=== PATIENT | female | born 1985 | race American Indian/Alaskan Native ===

== ENCOUNTER 2016-08-27 06:55 | Day surgery (SDC) | payer BC ==
--- NOTE | 2016-08-26 17:31 | History and Physical Report ---
History of Present Illness Date of examination: 08/26/16 History of present illness: Patient has been reassessed/reevaluated. H&P has been reviewed. No interval changes. 30 YOBF p0000 with missed EGA 7 weeks diagnosed by serial travaginal ultrasounds. 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 of genital herpes: no Partner hx. of genital herpes: no Hx of STD: None Current Allergies (reviewed today): No known allergies Past Medical History: Negative Past Medical History Past Surgical History: Negative Past Surgical History Family History Summary: Other family member - Has No Family History of Biliary Tract Cancer - Entered On : 08/14/2015 Other family member - Has No Family History of Breast Cancer - Entered On: 2015 Other family member - Has No Family History of Brain Cancer - Entered On: 2015 Other family member - Has No Family History of Colon Cancer - Entered On: 2015 Other family member - Has No Family History of DVT/PE on OCP - Entered On: 2015 Other family member - Has No Family History of Kidney/Urinary Tract Cancer - Entered On: 08/14/2015 Other family member - Has No Family History of Ovarvian Cancer - Entered On: Other family member - Has No Family History of Pancreatic Cancer - Entered On: Other family member - Has No Family History of Stomach Cancer - Entered On: 08/13 Other family member - Has No Family History of Small Bowel Cancer - Entered On: 08/14/2015 Other family member - Has No Family History of Uterine Cancer - Entered On: 08/13 General Comments - FH: No Family History of Breast Cancer No Family History of Colon Cancer No Family History of Ovarvian Cancer No Family History of DVT/PE on OCP Social History: Patient is single Smoking History: Patient has never smoked. Risk Factors: Smoked Tobacco Use: Never smoker Smokeless Tobacco Use: Never Passive smoke exposure: no Drug use: no HIV high-risk behavior: no Alcohol use: no Exercise: no Seatbelt use: 100 % Review of Systems General Denies fever, chills, sweats, anorexia, fatigue, weakness, malaise, weight loss and sleep disorder. Denies vaginal discharge, incontinence, dysuria, hematuria, urinary frequency, amenorrhea, menorrhagia, abnormal vaginal bleeding, pelvic pain, genital sores, decreased libido, painful periods, painful sex, urinary urgency, hot flashes, vaginal dryness, vaginal itching and vaginal odor. CV Denies chest pains, palpitations, syncope, dyspnea on exertion, orthopnea, PND and peripheral edema. Resp Denies cough, dyspnea at rest, excessive sputum, hemoptysis, wheezing and pleurisy. GI Denies nausea, vomiting, diarrhea, constipation, change in bowel habits, abdominal pain, melena, hematochezia, jaundice, gas/bloating, indigestion/ heartburn, dysphagia and odynophagia. Breast Denies left breast lump, right breast lump, nipple discharge, bloody discharge from nipple, breast pain, abnormal mammogram and breast enlargement. Psych Denies depression, anxiety, irritability and mood swings. Past History Past Medical History: other (See HPI) Past Surgical History: Other (See HPI) Social history: other (See HPI) Family history: other (See HPI) Medications and Allergies Allergies Allergy/AdvReac Type Severity Reaction Status Date / Time No Known Allergies Allergy Unverified 08/26/16 11:24 Home Medications Medication Instructions Recorded Confirmed Last Taken Type No Known Home Medications [No 08/26/16 08/26/16 Unknown History Reported Home Medications] Active Meds: Active Medications Lactated Ringer's (Lactated Ringers) 1,000 mls @ 150 mls/hr IV DIRECT DANY Review of Systems Constitutional: other (See HPI) Exam - Physical Exam Narrative exam: HEENT: normocephalic, no lesions or deformities Neck/Thyroid: supple, thyroid normal Skin no significant abnormal lesions or rashes Chest: respiratory effort normal, clear to auscultation Breasts: normal without skin changes or masses CV: regular, normal S1-S2, no murmur, no rub, no gallop Abdomen: normal bowel sounds, soft, nontender, no HSM Musculoskeletal: grossly normal ROM in joints, no joint tenderness or muscle weakness Neuro: no gross anomalities Extremities: no clubbing, cyanosis, or edema 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 No evidence of cystocele or rectocele. Cervix: normal appearance, no lesions, no discharge Uterus: normal position, midline, mobile Adnexae: no masses or tenderness Rectovaginal: exam defered Results - Labs CBC & Chem 7: 08/27/16 07:45 Assessment and Plan - Patient Problems (1) Missed Current Visit: Yes Status: Acute Plan to address problem: Diagnosis explained to patient . Questions answered. Medical and surgical treatment options discussed. Discussed risk of surgery including infection, bleeding and risk of perforating her uterus. Questions answered. Patient understands and desires to proceed
--- NOTE | 2016-08-27 07:40 | Anesthesia Day of Surgery ---
Anesthesia Day of Surgery - Day of Surgery Patient Examined: Yes Patient H&P Reviewed: Yes Patient is NPO: Yes
--- NOTE | 2016-08-27 07:40 | Anesthesia Consultation ---
Anesthesia Consult and Med Hx Date of service: 08/27/16 - Airway Anesthetic Teeth Evaluation: Good ROM Head & Neck: Adequate Mental/Hyoid Distance: Adequate Mallampati Class: Class I - Pulmonary Exam CTA: Yes - Cardiac Exam Cardiac Exam: RRR - Pre-Operative Health Status ASA Pre-Surgery Classification: ASA1 Proposed Anesthetic Plan: General - Central Nervous System Hx Psychiatric Problems: No - Other Systems Hx Alcohol Use: Yes (occas) Hx Cancer: No
[2016-08-27] MEDS: LACTATED RINGERS 1,000 ML IV SCH ×2 (07:56→10:01)
[2016-08-27] MEDS ORDERED: ZOFRAN IV PRN (08:00)
[2016-08-27] MEDS ORDERED: NORCO 5/325 PO PRN (08:00)
[2016-08-27] MEDS ORDERED: VERSED IV NR (08:00)
[2016-08-27] MEDS ORDERED: PEPCID PO NR (08:00)
[2016-08-27] MEDS ORDERED: DECADRON ONE (08:08)
[2016-08-27] MEDS ORDERED: ZOFRAN ONE (08:08)
[2016-08-27] MEDS ORDERED: DIPRIVAN 10 MG/ML IV ONE ×2 (08:08→08:55)
[2016-08-27] MEDS ORDERED: XYLOCAINE MPF 2% ONE (08:08)
[2016-08-27] MEDS ORDERED: SUBLIMAZE ONE (08:08)
[2016-08-27 08:22] LABS: Hematocrit 36.3 % (30.3-42.9); Hemoglobin 11.8 gm/dl (10.1-14.3)
[2016-08-27] MEDS ORDERED: METHERGINE IM ONE ×2 (09:03→09:09)
[2016-08-27] MEDS ORDERED: NACL 0.9% IR ONE (09:09)
[2016-08-27] MEDS ORDERED: ePHEDrine SULFATE ONE (09:10)
[2016-08-27] MEDS ORDERED: SILVER NITRATE TP ONE (09:15)
--- NOTE | 2016-08-27 09:24 | Operative Report ---
Operative Report Operative Report: Date of procedure: 08/27/2016 Pre-operative diagnosis: Missed Post-operative diagnosis: Same Procedure name(s): Suction dilatation and curettage Surgeon: Bhargav Lindquist MD Buffet Manager: [] Anesthesia: General EBL: 100 mL Complications: None Findings: A moderate amount of tissue consistent with products of conception Specimen(s): Uterine contents Procedure: The patient was brought operating room where general anesthesia was induced without difficulty. Patient was placed in dorsal lithotomy position prepped and draped in the usual sterile manner. Rubber catheter was used to empty her bladder. Speculum placed in the vagina. Tenaculum was placed at 12: 00. The cervix was dilated progressively with Hegar dilators. A 8 mm suction catheter was placed through the cervical os. Several passes of the suction catheter removed the uterine contents. General curettage was done with a banjo curettte. On until a gritty sensation was felt throughout the uterine cavity. Further suction with the suction curettage revealed no further products. All instruments were removed patient was hemostatic. She was awakened in the operating room and accompanied to recovery room in good condition.
--- NOTE | 2016-08-27 09:29 | Short Stay Summary ---
Short Stay Documentation Date of service: 08/27/16 - History H&P: dictated Past Medical History: other (See HPI) Past Surgical History: Other (See HPI) Social history: other (See HPI) - Allergies and Medications Current Medications: Allergies No Known Allergies Allergy (Unverified 08/26/16 11:24) Home Medications Medication Instructions Recorded Confirmed Last Taken Type Acetaminophen/Codeine [Tylenol #3] 1 tab PO Q4HR PRN #20 tablet 08/27/16 Unknown Rx Doxycycline [Vibramycin CAP] 100 mg PO Q12HR #14 capsule 08/27/16 Unknown Rx Ibuprofen [Motrin 800 MG tab] 800 mg PO Q6H PRN #30 tablet 08/27/16 Unknown Rx Methylergonovine [Methergine] 0.2 mg PO Q8HR #6 tablet 08/27/16 Unknown Rx Active Medications Acetaminophen/Hydrocodone Bitart ([place] 5/325) 2 each PO ONCE PRN PRN Reason: Pain, Moderate (4-6) Stop: 08/27/16 14:00 Famotidine (Pepcid) 20 mg PO PREOP NR Stop: 08/27/16 13:00 Last Admin: 08/27/16 08:12 Dose: 20 mg Hydromorphone HCl (Dilaudid) 0.5 mg IV Q10MIN PRN PRN Reason: Pain , Severe (7-10) Stop: 08/27/16 14:00 Lactated Ringer's (Lactated Ringers) 1,000 mls @ 150 mls/hr IV DIRECT DANY Last Admin: 08/27/16 07:56 Dose: 150 mls/hr Midazolam HCl (Versed) 2 mg IV PREOP NR Stop: 08/27/16 23:59 Last Admin: 08/27/16 08:15 Dose: 2 mg Ondansetron HCl (Zofran) 4 mg IV ONCE PRN PRN Reason: Nausea And Vomiting Stop: 08/27/16 14:00 - Brief post op/procedure progress note Date of procedure: 08/27/16 (please see dictated operative note) - Hospital course Hospital course: Patient was admitted underwent the above him procedure without any complications. Patient will be discharged with follow-up in office in 1-2 weeks for postop check. - Disposition Condition at discharge: Good Disposition: DISCHARGED TO HOME OR SELFCARE - Discharge Diagnoses (1) Missed Status: Acute Short Stay Discharge Plan Activity: advance as tolerated Diet: regular Additional Instructions: Patient office for fever chills nausea vomiting or pain uncontrolled by pain relief. Follow up with: PRIMARY CARE, [Primary Care Provider] - 7 Days Prescriptions: Methylergonovine [Methergine] 0.2 mg PO Q8HR #6 tablet Ibuprofen [Motrin 800 MG tab] 800 mg PO Q6H PRN #30 tablet PRN Reason: Pain Acetaminophen/Codeine [Tylenol #3] 1 tab PO Q4HR PRN #20 tablet PRN Reason: Pain Doxycycline [Vibramycin CAP] 100 mg PO Q12HR #14 capsule
[2016-08-27] MEDS: DILAUDID IV PRN ×2 (09:45→09:55)
--- NOTE | 2016-08-27 10:08 | Post Anesthesia Evaluation ---
- Post Anesthesia Evaluation Patient Participated: Yes Airway Patent: Yes Stable Respiratory Function: Yes Temp > 96.8F: Yes Pain Manageable: Yes Adequeate Hydration: Yes Anesthesia Complications: No Block Receding Appropriately: Not Applicable
[2016-08-27 10:39] VITALS: BP 111/68
== END 2016-08-27 11:22 | disposition home or self-care (01) ==
LOC: OR 06:55
PROVIDERS: ATTEND Obstetrics & Gynecology
DX: O02.1 Missed abortion (principal); Z72.89 Other problems related to lifestyle
CPT/HCPCS: 36415; 59820; 85014; 85018; 86900; 86901; 88305; J1100; J1170; J2210; J2250; J2405; J2704; J3010; J7120

== ENCOUNTER 2018-04-17 11:15 | Outpatient (CLI) | payer OTHER ==
--- NOTE | 2018-04-17 14:23 | Ultrasound Report ---
LEFT BREAST ULTRASOUND: 04/17/18 11:15:00 CLINICAL: Pain in the lower left breast. COMPARISON: None. FINDINGS: Ultrasoundof the lower left breast was performed from 9 o'clock to 3 o'clock and demonstrated a single subareolar benign cyst measuring 3 mm and otherwise normal fibroglandular structures. No solid mass or shadowing. IMPRESSION: A single 3 mm benign cyst of the left breast and otherwise negative exam. BI-RADS 2 - - Benign RECOMMENDATION: Clinical followup and routine mammographic screening based on ACS guidelines.
== END 2018-04-17 11:16 | disposition home or self-care (01) ==
LOC: US 11:15
PROVIDERS: ATTEND Obstetrics & Gynecology
DX: N60.02 Solitary cyst of left breast (principal)

== ENCOUNTER 2018-10-19 08:24 | Day surgery (SDC) | payer OTHER ==
--- NOTE | 2018-10-18 14:33 | History and Physical Report ---
History of Present Illness Date of examination: 10/18/18 History of present illness: Patient has been reassessed/reevaluated. H&P has been reviewed. No interval changes. The patient presents today Pre- Op. Medical and surgical treatment options discussed Discussed risks and benefits of expectant management, treatments with medications and dilatation and curretage. Patient desires definitive treatment Patient desires D&C. Vital Signs: Patient Profile: 33 Years Old Female Height: 64.25 inches (163.19 cm) Weight: 162 pounds (73.64 kg) BMI: 27.59 BSA: 1.80 Past History : 4 Term Births: 0 Premature Births: 0 Living Children: 0 Para: 0 Mult. Births: 0 Prev : 0 Prev. attempt? 0 Aborta: 3 Elect. Ab: 1 Spont. 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 of genital herpes: no Partner hx. of genital herpes: no Hx of STD: none Active Medications (reviewed today): None Current Allergies (reviewed today): No known allergies Past Medical History: Negative Past Medical History Past Surgical History: D&C: (08/27/2016) SAB D&C: (12/2016) EAB Family History Summary: Reviewed history Last on 12/16/2016 and no changes required:10/18/2018 Other family member - Has No Family History of Biliary Tract Cancer - Entered On: 08/14/2015 Other family member - Has No Family History of Breast Cancer - Entered On: 08/14/2015 Other family member - Has No Family History of Brain Cancer - Entered On: 08/14/2015 Other family member - Has No Family History of Colon Cancer - Entered On: 08/14/2015 Other family member - Has No Family History of DVT/PE on OCP - Entered On: 08/14/2015 Other family member - Has No Family History of Kidney/Urinary Tract Cancer - Entered On: 08/14/2015 Other family member - Has No Family History of Ovarvian Cancer - Entered On: 08/14/2015 Other family member - Has No Family History of Pancreatic Cancer - Entered On: 08/14/2015 Other family member - Has No Family History of Stomach Cancer - Entered On: 08/14/2015 Other family member - Has No Family History of Small Bowel Cancer - Entered On: 08/14/2015 Other family member - Has No Family History of Uterine Cancer - Entered On: 08/14/2015 MGM - Has Family History of Lung Cancer - Entered On: 03/21/2018 General Comments - FH: No Family History of Breast Cancer No Family History of Colon Cancer No Family History of Ovarvian Cancer No Family History of DVT/PE on OCP Social History: Reviewed history from 08/14/2015 and no changes required: Patient is single Smoking History: Patient has never smoked. Risk Factors: Smoked Tobacco Use: Never smoker Smokeless Tobacco Use: Never Passive smoke exposure: no Drug use: no HIV high-risk behavior: no Alcohol use: no Exercise: no Seatbelt use: 100 % Review of Systems General Denies fever, chills, sweats, anorexia, fatigue, weakness, malaise, weight loss and sleep disorder. Complains of abnormal vaginal bleeding. Denies vaginal discharge, incontinence, dysuria, hematuria, urinary frequency, amenorrhea, menorrhagia, pelvic pain, genital sores, decreased libido, painful periods, painful sex, urinary urgency, hot flashes, vaginal dryness, vaginal itching and vaginal odor. CV Denies chest pains, palpitations, syncope, dyspnea on exertion, orthopnea, PND and peripheral edema. Resp Denies cough, dyspnea at rest, excessive sputum, hemoptysis, wheezing and pleurisy. GI Denies nausea, vomiting, diarrhea, constipation, change in bowel habits, abdominal pain, melena, hematochezia, jaundice, gas/bloating, indigestion/heartburn, dysphagia and odynophagia. Breast Denies left breast lump, right breast lump, nipple discharge, bloody discharge from nipple, breast pain, abnormal mammogram and breast enlargement. Psych Denies depression, anxiety, irritability and mood swings. Past History Past Medical History: other (See HPI) Past Surgical History: Other (See HPI) Social history: full code, other (See HPI) Family history: other (See HPI) Medications and Allergies Allergies Allergy/AdvReac Type Severity Reaction Status Date / Time No Known Allergies Allergy Unverified 10/18/18 11:32 Home Medications Medication Instructions Recorded Confirmed Last Taken Type No Known Home Medications [No 04/06/18 10/18/18 Unknown History Reported Home Medications] Review of Systems Constitutional: other (See HPI) Exam - Physical Exam Narrative exam: HEENT: normocephalic, no lesions or deformities Skin no significant abnormal lesions or rashes Chest: respiratory effort normal, clear to auscultation CV: regular, normal S1-S2, no murmur, no rub, no gallop Abdomen: normal bowel sounds, soft, nontender, no HSM Musculoskeletal: grossly normal ROM in joints, no joint tenderness or muscle weakness Neuro: no gross anomalities Extremities: no clubbing, cyanosis, or edema 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 Questions answered. Patient understands and desires to proceed The patient was instructed/informed the following: The normal length of hospital stay for this procedure. Nothing to eat or drink after midnight the evening prior to surgery. Pre-op instruction sheets given. (2) Missed Current Visit: No Status: Acute Plan to address problem: Will obtain chromosomal studies of POC (3) Blood type AB+ Current Visit: No Status: Chronic
--- NOTE | 2018-10-19 09:20 | Ultrasound Report ---
Pelvic ultrasound. 10/19/2018. HISTORY: Miscarriage. Bleeding. FINDINGS: The uterus measures 8.1 x 3.7 x 4.5 cm. The endometrial stripe is mildly thickened measurin g 13.5 mm and heterogeneous. Mild increased vascularity is noted distally. Right ovary measures 2.1 x 1.1 x 2.2 cm. Left ovary measures 2.5 x 1.6 x 2.1 cm. Both ovaries contain flow. Negative for adnexal mass or fluid. IMPRESSION: Thickened, heterogeneous endometrial stripe with mild increased vascularity. The findings are worrisome for retained products. Signer Name: Chai Lorenzo MD Signed: 10/19/2018 9:16 AM Workstation Name: [id number]
--- NOTE | 2018-10-19 09:54 | Anesthesia Consultation ---
Anesthesia Consult and Med Hx Date of service: 10/19/18 - Airway Anesthetic Teeth Evaluation: Good ROM Head & Neck: Adequate Mental/Hyoid Distance: Adequate Mallampati Class: Class I Intubation Access Assessment: Good - Pulmonary Exam CTA: Yes - Cardiac Exam Cardiac Exam: RRR - Pre-Operative Health Status ASA Pre-Surgery Classification: ASA1 Proposed Anesthetic Plan: General - Central Nervous System Hx Psychiatric Problems: No - Other Systems Hx Alcohol Use: Yes (Occas) Hx Cancer: No
--- NOTE | 2018-10-19 09:55 | Anesthesia Day of Surgery ---
Anesthesia Day of Surgery - Day of Surgery Patient Examined: Yes Patient H&P Reviewed: Yes Patient is NPO: Yes
[2018-10-19] MEDS ORDERED: DILAUDID IV PRN (10:00)
[2018-10-19] MEDS ORDERED: ZOFRAN IV PRN (10:00)
[2018-10-19] MEDS ORDERED: LACTATED RINGERS 1,000 ML IV SCH (10:00)
[2018-10-19] MEDS ORDERED: SILVER NITRATE TP ONE (10:12)
[2018-10-19] MEDS ORDERED: METHERGINE IM ONE ×2 (10:13→11:20)
[2018-10-19] MEDS ORDERED: SUBLIMAZE ONE (10:16)
[2018-10-19] MEDS ORDERED: DIPRIVAN 10 MG/ML IV ONE (10:17)
[2018-10-19] MEDS ORDERED: VERSED ONE (10:52)
[2018-10-19] MEDS ORDERED: XYLOCAINE MPF 2% ONE (11:00)
[2018-10-19] MEDS ORDERED: DECADRON ONE (11:08)
[2018-10-19] MEDS ORDERED: ZOFRAN ONE (11:08)
[2018-10-19] MEDS ORDERED: PHENYLEPHRINE/NS Syringe 1,000 MCG/10 ML IV ONE (11:08)
[2018-10-19] MEDS ORDERED: TORADOL ONE (11:08)
[2018-10-19] MEDS ORDERED: NACL 0.9% IR ONE (11:20)
--- NOTE | 2018-10-19 12:05 | Short Stay Summary ---
Short Stay Documentation Date of service: 10/19/18 - History H&P: dictated Past Medical History: other (See HPI) Past Surgical History: Other (See HPI) Social history: full code, other (See HPI) - Allergies and Medications Current Medications: Allergies No Known Allergies Allergy (Unverified 10/18/18 11:32) Home Medications Medication Instructions Recorded Confirmed Last Taken Type Acetaminophen/Codeine [Tylenol #3] 1 tab PO Q4HR PRN #10 tablet 10/19/18 Unknown Rx DOXYCYCLINE Hyclate [Vibramycin 100 mg PO Q12HR #14 capsule 10/19/18 Unknown Rx CAP] Ibuprofen [Motrin 800 MG tab] 800 mg PO Q6H PRN #30 tablet 10/19/18 Unknown Rx Active Medications Hydromorphone HCl (Dilaudid) 0.5 mg IV Q10MIN PRN PRN Reason: Pain , Severe (7-10) Stop: 10/19/18 16:00 Lactated Ringer's (Lactated Ringers) 1,000 mls @ 75 mls/hr IV DIRECT DANY Last Admin: 10/19/18 10:51 Dose: 75 mls/hr Documented by: Ondansetron HCl (Zofran) 4 mg IV ONCE PRN PRN Reason: Nausea And Vomiting Stop: 10/19/18 16:00 - Brief post op/procedure progress note Date of procedure: 10/19/18 (See dictated ) Condition: stable - Hospital course Hospital course: Please see H&P for details. Patient was admitted underwent the above him procedure without any complications. Patient will be discharged with follow-up in office in 1-2 weeks for postop check. - Disposition Condition at discharge: Good Disposition: DC-01 TO HOME OR SELFCARE - Discharge Diagnoses (1) History of recurrent miscarriages Status: Chronic (2) Missed Status: Acute (3) Blood type AB+ Status: Chronic Short Stay Discharge Plan Activity: advance as tolerated Diet: regular Additional Instructions: Patient office for heavy vaginal bleeding, fever, chills, nausea, vomiting or pain uncontrolled by pain medication. Follow up with: MURPHY RICHMOND MD [Primary Care Provider] - 7 Days Prescriptions: Ibuprofen [Motrin 800 MG tab] 800 mg PO Q6H PRN #30 tablet PRN Reason: Pain Acetaminophen/Codeine [Tylenol #3] 1 tab PO Q4HR PRN #10 tablet PRN Reason: Pain DOXYCYCLINE Hyclate [Vibramycin CAP] 100 mg PO Q12HR #14 capsule
[2018-10-19 12:38] VITALS: BP 103/53
--- NOTE | 2018-10-19 12:41 | Post Anesthesia Evaluation ---
- Post Anesthesia Evaluation Patient Participated: Yes Airway Patent: Yes Stable Respiratory Function: Yes Nausea/Vomiting: No Temp > 96.8F: Yes Pain Manageable: Yes Adequeate Hydration: Yes Anesthesia Complications: No Block Receding Appropriately: Not Applicable Patient on Ventilator: No
--- NOTE | 2018-10-26 18:10 | Operative Report ---
Operative Report Operative Report: Date of procedure: 10/19/2018 Pre-operative diagnosis: Missed Post-operative diagnosis: Same Procedure name(s): Suction dilatation and curettage Surgeon: Bhargav Lindquist MD Patient Account Representative: [] Anesthesia: General EBL: 50 mL Complications: None Findings: A moderate amount of tissue consistent with products of conception Specimen(s): Uterine contents Procedure: The patient was brought operating room where general anesthesia was induced without difficulty. Patient was placed in dorsal lithotomy position prepped and draped in the usual sterile manner. Rubber catheter was used to empty her bladder. Speculum placed in the vagina. Tenaculum was placed at 12:00. The cervix was dilated progressively with Hegar dilators. A 10 mm suction catheter was placed through the cervical os. Several passes of the suction catheter removed the uterine contents. General curettage was done with a banjo curettte. On until a gritty sensation was felt throughout the uterine cavity. Further suction with the suction curettage revealed no further products. All instruments were removed patient was hemostatic. She was awakened in the operating room and accompanied to recovery room in good condition.
== END 2018-10-19 08:25 | disposition home or self-care (01) ==
LOC: OR 08:24
PROVIDERS: ATTEND Obstetrics & Gynecology
DX: O02.1 Missed abortion (principal); Z79.899 Other long term (current) drug therapy; Z72.89 Other problems related to lifestyle; Z98.890 Other specified postprocedural states
CPT/HCPCS: 59820; 76830; 82803; 88305; J1100; J1885; J2210; J2250; J2370; J2405; J2704; J3010; J7120

== ENCOUNTER 2021-01-30 11:04 | Outpatient (CLI) | payer OTHER ==
[2021-01-30 12:24] VITALS: BP 119/76
[2021-01-30 13:20] LABS: Alanine Aminotransferase 15 units/L (7-56); Albumin 3.7 g/dL (3.9-5); BUN/Creatinine Ratio 13; Blood Urea Nitrogen 10 mg/dL (7-17); Calcium 9.2 mg/dL (8.4-10.2); Hemolysis Index 5
[2021-01-30 13:21] LABS: Bilirubin,Direct < 0.2 mg/dL (0-0.2)
== END 2021-01-30 15:00 | disposition home or self-care (01) ==
LOC: TRG 11:04 → APU 11:06 → TRG 15:00
PROVIDERS: ATTEND Student in an Organized Health Care Education/Training Program
DX: O09.893 Supervision of other high risk pregnancies, third trimester (principal); Z3A.39 39 weeks gestation of pregnancy
CPT/HCPCS: 36415; 59025; 80048; 80076

== ENCOUNTER 2021-02-02 18:58 | Inpatient (IN) | payer OTHER ==
[2021-02-02] MEDS ORDERED: LACTATED RINGERS 1,000 ML ONE (21:45)
[2021-02-02] MEDS ORDERED: OXYTOCIN DRIP 30,000 MILLIUNITS/500 ML BAG IV ONE (22:06)
--- NOTE | 2021-02-02 22:29 | History and Physical Report ---
History of Present Illness Date of examination: 02/02/21 Date of admission: 02/02/21 19:45 Chief complaint: Labor - water broke in triage History of present illness: EDC Calculations by LMP: 02/02/2021 Past History : 6 Term Births: 1 Premature Births: 0 Living Children: 1 Para: 1 Mult. Births: 0 Prev : 0 Prev. attempt? 0 Aborta: 4 Elect. Ab: 1 Spont. Ab: 3 Ectopics: 0 # 1 Delivery date: 08/27/2016 Weeks Gestation: 8 Delivery type: SAB Delivery location: [facility] Comments: D&C done # 2 Delivery date: 01/01/2017 Delivery type: EAB # 3 Delivery date: 03/2018 Delivery type: SAB # 4 Delivery date: 10/19/2018 Weeks Gestation: 9 Delivery type: SAB Delivery location: [facility] Comments: D&C done # 5 Delivery date: 10/25/2019 Weeks Gestation: 39.1 Delivery type: Vaginal Anesthesia type: epidural Delivery location: [facility] Infant Sex: female weight: 8 Comments: none Past Medical History: Reviewed history from 05/12/2009 and no changes required: Negative Past Medical History Risk Factors: Smoked Tobacco Use: Never smoker Smokeless Tobacco Use: Never Drug use: no HIV high-risk behavior: no Alcohol use: no Exercise: no 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: other (see HPI) Family/Genetic History: other (see HPI) Social history: no significant social history - Obstetrical History Expected Date of Delivery: 02/02/21 Actual Gestation: 40 Week(s) 0 Day(s) : 6 Para: 1 Hx # Term Pregnancies: 1 Number of Pregnancies: 0 Spontaneous Abortions: 3 Induced : 1 Number of Living Children: 1 Medications and Allergies Allergies Allergy/AdvReac Type Severity Reaction Status Date / Time No Known Allergies Allergy Verified 10/24/19 11:38 Home Medications Medication Instructions Recorded Confirmed Last Taken Type Acetaminophen/Codeine [Tylenol #3] 1 tab PO Q4HR PRN #10 tablet 10/19/18 10/25/19 Unknown Rx DOXYCYCLINE Hyclate [Vibramycin 100 mg PO Q12HR #14 capsule 10/19/18 10/25/19 Unknown Rx CAP] Ibuprofen [Motrin 800 MG tab] 800 mg PO Q6H PRN #30 tablet 10/19/18 10/25/19 Unknown Rx Ibuprofen [Motrin] 800 mg PO Q8HR PRN #30 tablet 10/26/19 Unknown Rx Review of Systems All systems: negative - Vital Signs Vital signs: Vital Signs Temp Pulse Resp BP Pulse Ox 98.6 F 101 H 18 123/73 99 02/02/21 19:36 02/02/21 19:36 02/02/21 19:36 02/02/21 19:36 02/02/21 19:36 Temp Pulse Resp BP Pulse Ox 98.6 F 120 H 18 123/73 100 02/02/21 19:36 02/02/21 22:25 02/02/21 19:36 02/02/21 19:36 02/02/21 22:25 - Physical Exam Breasts: Positive: normal Cardiovascular: Regular rate Lungs: Positive: Normal air movement Abdomen: Positive: normal appearance, soft Genitourinary (Female): Positive: normal external genitalia, normal perenium Vulva: both: normal Vagina: Positive: normal moisture Uterus: Positive: normal size - Obstetrical FHR: auscultation normal Uterine Contraction Monitor Mode: External Cervical Dilatation: 10 Cervical Effacement Percentage: 100 station: +1 Uterine Contraction Frequency (min): 2 Uterine Contraction Duration: 60 Uterine Contraction Pattern: Regular Uterine Tone Measurement Phase: Contraction Uterine Contraction Intensity: Strong/Firm Results All other labs normal. Assessment and Plan 35y/o arrived to triage for labor check, she quickly progressed to 8cms after SROM of clear fluild. Admission orders in EMR. I arrived as patient was starting to push spontaneously with ctx. - Patient Problems (1) 40 weeks gestation of Current Visit: Yes Status: Acute (2) SROM (spontaneous rupture of membranes) Current Visit: Yes Status: Acute
[2021-02-02] MEDS ORDERED: BENZOCAINE/MENTHOL 20/0.5% TOP SPRAY 56 GM TP PRN (22:32)
[2021-02-02] MEDS ORDERED: LANOLIN/ZINC/DIMETHICONE (LANSINOH) 7 GM TP PRN ×2 (22:32)
[2021-02-02] MEDS ORDERED: WITCH HAZEL/ GLYCERIN PAD TP PRN (22:32)
[2021-02-02] MEDS ORDERED: ONDANSETRON 4 MG/2 ML INJ IV PRN (22:32)
[2021-02-02] MEDS ORDERED: KETOROLAC 30 MG/1 ML INJ IV PRN (22:32)
[2021-02-02] MEDS ORDERED: PROMETHAZINE 25 MG TAB PO PRN (22:32)
[2021-02-02] MEDS ORDERED: ACETAMINOPHEN 325 MG TAB PO PRN (22:32)
[2021-02-02] MEDS ORDERED: diphenhydrAMINE 25 MG CAP PO PRN (22:32)
[2021-02-02] MEDS ORDERED: MAGNESIUM HYDROXIDE (MOM) ORAL LIQD UDC PO PRN (22:32)
[2021-02-02] MEDS ORDERED: DOCUSATE SODIUM 100 MG CAP PO PRN (22:32)
--- NOTE | 2021-02-02 22:32 | Procedure Note ---
OB Delivery Note - Delivery Date of Delivery: 02/02/21 [employer]: SAADIA POMPA Estimated blood loss: <100cc - Vaginal Delivery presentation: vertex Delivery position: OA Intrapartum events: precipitous labor- <3hr Delivery induction: none Delivery monitor: external FHT, external uterine Route of delivery: Delivery placenta: spontaneous Delivery cord: nuchal cord, 3 umbilical vessels Episiotomy: none Delivery laceration: none Anesthesia: none Delivery comments: female born OA over intact perineum, tight nuchal cord somersaulted thro ugh. placed skin to skin on mother's abdomen. 3 vessel cord clamped and cut after cessation of pulsation. Placenta delivered intact and complete. no lacerations to repair. EBL <100. Wt 8#10oz. All counts correct, mother and LDR stable. - A at 1 minute: 8 at 5 minutes: 9 Infant Gender: Female (8#10)
[2021-02-02 22:53] LABS: Hematocrit 38.3 % (30.3-42.9); Hemoglobin 12.3 gm/dl (10.1-14.3); Mean Corpuscular HGB Conc 32 % (30-34); Mean Corpuscular Volume 85 fl (79-97); Platelet Count 157 K/mm3 (140-440); Red Cell Distribution Width 15.7 % (13.2-15.2)
[2021-02-02] MEDS ORDERED: OXYTOCIN DRIP 30 UNITS/500 ML BAG IV SCH (23:00)
[2021-02-03] MEDS ORDERED: LACTATED RINGERS 1,000 ML IV SCH (00:15)
[2021-02-03] MEDS: IBUPROFEN 800 MG TAB PO SCH ×3 (02:35→17:37)
--- NOTE | 2021-02-03 09:01 | Progress Note ---
Assessment and Plan Pt reports ambulating, voiding, and eating well and without difficulties. Post delivery H&H ordered for today. POC d/w pt. Questions encouraged and addressed. Pt verbalizes understanding and agrees to POC. Pt reports desires for BTL for control and consents signed in office. Anticipate discharge home tomorrow. - Patient Problems (1) (normal spontaneous vaginal delivery) Current Visit: No Status: Acute Subjective - Subjective Date of service: 02/03/21 Principal diagnosis: s/p Patient reports: appetite normal, voiding normally, pain well controlled, ambulating normally : doing well, nursing well Objective - Vital Signs Latest vital signs: Vital Signs Temp Pulse Resp BP BP Pulse Ox Pulse Ox 02/03/21 05:10 98.1 F 87 20 124/73 98 02/03/21 00:37 98 02/03/21 00:16 75 93 02/03/21 00:15 99 H 97 02/03/21 00:12 102 H 137/61 02/03/21 00:10 90 98 02/03/21 00:05 94 H 98 02/03/21 00:00 95 H 99 02/02/21 23:57 96 H 130/64 02/02/21 23:55 99 H 98 02/02/21 23:50 87 97 02/02/21 23:45 88 97 02/02/21 23:43 93 H 126/66 02/02/21 23:40 93 H 99 02/02/21 23:35 102 H 98 02/02/21 23:30 95 H 98 02/02/21 23:27 96 H 123/59 02/02/21 23:25 97 H 98 02/02/21 23:20 95 H 99 02/02/21 23:15 101 H 99 02/02/21 23:13 98 H 117/59 02/02/21 23:10 93 H 98 02/02/21 23:05 94 H 99 02/02/21 23:00 95 H 99 02/02/21 22:57 96 H 118/62 02/02/21 22:56 98.3 F 97 H 18 118/62 99 02/02/21 22:55 94 H 99 02/02/21 22:50 99 H 100 02/02/21 22:45 102 H 100 02/02/21 22:40 104 H 100 02/02/21 22:35 106 H 100 02/02/21 22:30 113 H 99 02/02/21 22:25 120 H 100 02/02/21 22:20 106 H 98 02/02/21 22:15 129 H 99 02/02/21 22:10 103 H 100 02/02/21 22:05 92 H 99 02/02/21 21:50 85 02/02/21 21:35 93 H 100 02/02/21 21:30 102 H 96 02/02/21 21:29 72 92 02/02/21 21:25 91 H 98 02/02/21 19:56 106 H 99 02/02/21 19:51 103 H 100 02/02/21 19:46 96 H 100 02/02/21 19:41 107 H 99 02/02/21 19:36 98.6 F 104 H 18 123/73 123/73 99 Intake and Output 02/02/21 02/03/21 02/03/21 23:59 07:59 15:59 Intake Total 240 Output Total 450 Balance -210 Intake: Oral 240 Output: Urine 450 Void 450 Other: Total, Intake Amount 240 Total, Output Amount 150 # Voids Void 1 Weight 213 lb Estimated Blood Loss 100 - Exam Breasts: Present: normal, Cardiovascular: Present: Regular rate Lungs: Present: Normal air movement Abdomen: Present: normal appearance, soft Uterus: Present: normal, firm, fundal height at umbilicus. Absent: bogginess Extremities: Present: normal - Labs Labs: Abnormal lab results 02/02/21 Range/Units 21:53 MCH 27 L (28-32) pg RDW 15.7 H (13.2-15.2) %
[2021-02-03] MEDS: PRENATAL VIT27-FE FUMARATE-FOLIC ACID VIT TAB PO SCH (09:46)
[2021-02-03 15:04] LABS: Hematocrit 38.3 % (30.3-42.9); Hemoglobin 12.2 gm/dl (10.1-14.3)
[2021-02-04] MEDS: IBUPROFEN 800 MG TAB PO SCH ×2 (00:24→05:45)
[2021-02-04] MEDS ORDERED: TETANUS,DIPH,PERTUSS(ACELL) VACCINE 0.5 ML SYRINGE IM ONE (06:00)
--- NOTE | 2021-02-04 09:09 | Discharge Summary ---
Providers - Providers Date of Admission: 02/02/21 19:45 Date of discharge: 02/04/21 (desires d/c home) Attending physician: BECKY STRONG MD Primary care physician: BECKY STRONG MD Hospitalization Reason for admission: Labor and delivery Condition: Good Pertinent studies: post delivery H&H 12.2/38.3 Procedures: Hospital course: uncomplicated and course Disposition: 01 HOME / SELF CARE / HOMELESS Final Discharge Diagnosis (Prints w/discharge instructions): Time spent for discharge: 20 - Discharge Diagnoses (1) (normal spontaneous vaginal delivery) Status: Acute Core Measure Documentation - Palliative Care Palliative Care/ Comfort Measures: Not Applicable - Core Measures Any of the following diagnoses?: none Exam - Constitutional Vitals: Temp Pulse Resp BP Pulse Ox 97.1 F L 75 20 110/61 100 02/04/21 07:56 02/04/21 07:56 02/04/21 07:56 02/04/21 07:56 02/04/21 07:56 General appearance: Present: no acute distress, well-nourished - EENT Eyes: Present: PERRL ENT: hearing intact, clear oral mucosa - Neck Neck: Present: supple, normal ROM - Respiratory Respiratory effort: normal Respiratory: bilateral: CTA - Cardiovascular Rhythm: regular Heart Sounds: Absent: rub, click - Extremities Extremities: pulses symmetrical, No edema Peripheral Pulses: within normal limits - Abdominal General gastrointestinal: Present: soft, non-tender, non-distended, normal bowel sounds Female genitourinary: Present: normal - Integumentary Integumentary: Present: clear, warm, dry - Musculoskeletal Musculoskeletal: gait normal, strength equal bilaterally - Psychiatric Psychiatric: appropriate mood/affect, intact judgment & insight - Neurologic Neurologic: CNII-XII intact, moves all extremities - Additional findings Additional findings: lochia scant, fundus firm, Plan Activity: no restrictions Diet: regular Follow up with: BECKY STRONG MD [Primary Care Provider] - 02/25/21 (Congratulations! Please call [phone] to schedule your visit in 4 week. Call for any questions or concerns. ) Prescriptions: Ibuprofen [Motrin 800 MG tab] 800 mg PO Q8HR PRN #30 tablet PRN Reason: Pain
[2021-02-04] MEDS: PRENATAL VIT27-FE FUMARATE-FOLIC ACID VIT TAB PO SCH (09:29)
[2021-02-04 14:17] VITALS: BP 116/68
== END 2021-02-04 13:20 | disposition home or self-care (01) | DRG 807 ==
LOC: TRG 18:58 → APU 18:59 → OBSVTOIN 19:45 → TRG 19:45 → LD 19:45 → OB 02-03 00:45
PROVIDERS: ADMIT Student in an Organized Health Care Education/Training Program; ATTEND Student in an Organized Health Care Education/Training Program
PROC: 10E0XZZ Delivery of Products of Conception, External Approach (ICD-10-PCS; principal; 2021-02-02)
DX: O62.3 Precipitate labor (principal); Z37.0 Single live birth; O69.1XX0 Labor and delivery complicated by cord around neck, with compression, not applicable or unspecified; Z3A.40 40 weeks gestation of pregnancy; Z20.822 Contact with and (suspected) exposure to COVID-19
CPT/HCPCS: 36415; 85014; 85018; 85027; 86592; 86850; 86900; 86901; G0378; J2590; J7120; U0003

== ENCOUNTER 2021-03-16 09:48 | Day surgery (SDC) | payer OTHER ==
[2021-03-11 13:50] LABS: Hematocrit 42.9 % (30.3-42.9); Hemoglobin 13.6 gm/dl (10.1-14.3); Mean Corpuscular HGB Conc 32 % (30-34); Mean Corpuscular Volume 83 fl (79-97); Platelet Count 144 K/mm3 (140-440); Red Blood Count 5.14 M/mm3 (3.65-5.03); Red Cell Distribution Width 15.3 % (13.2-15.2)
--- NOTE | 2021-03-16 08:19 | History and Physical Report ---
History of Present Illness Date of examination: 03/11/21 History of present illness: This 35 year old patient desires sterilization. Discussed with various methods of contraceptives including abstinence, barrier and hormonal. Discussed oral, implantable, dermal, injectable,intravaginal and intrauterine methods. Patient declined temporary contraceptives. Discuss the permanency of sterilization. High risk of regret and 0.5 to 1% risk of failure. Questions answered Patient understands and desires to proceed. ] Vital Signs: Patient Profile: 35 Years Old Female LMP: 03/08/2021 Height: 64.25 inches (163.19 cm) Weight: 191 pounds BMI: 32.53 Temp: 97.8 degrees F BP sittin / 82 (left arm) Menstrual History: LMP (date): 03/08/2021 LMP - Character: light Date of Last Pap Smear: 05/28/2020 Past History : 6 Term Births: 2 Premature Births: 0 Living Children: 2 Para: 2 Mult. Births: 0 Prev : 0 Prev. attempt? 0 Aborta: 4 Elect. Ab: 1 Spont. Ab: 3 Ectopics: 0 # 1 Delivery date: 08/27/2016 Weeks Gestation: 8 Delivery type: SAB Delivery location: [facility] Comments: D&C done # 2 Delivery date: 01/01/2017 Delivery type: EAB # 3 Delivery date: 03/2018 Delivery type: SAB # 4 Delivery date: 10/19/2018 Weeks Gestation: 9 Delivery type: SAB Delivery location: [facility] Comments: D&C done # 5 Delivery date: 10/25/2019 Weeks Gestation: 39.1 Delivery type: Vaginal Anesthesia type: epidural Delivery location: [facility] Sex: female weight: 8 Comments: none # 6 Delivery date: 02/02/2021 Weeks Gestation: 40 labor: no Delivery type: Delivery location: [facility] Sex: Female weight: 8-10 Current Allergies (reviewed today): No known allergies Past Medical History: Negative Past Medical History Past Surgical History: D&C: (08/27/2016) SAB D&C: (12/2016) EAB D&C: (10/19/2018) [facility] Family History Summary: MGM - Has Family History of Lung Cancer - Entered On: 03/21/2018 Other Family Member - Has No Family History of Uterine Cancer - Entered On: 08/14/2015 Other Family Member - Has No Family History of Small Bowel Cancer - Entered On: 08/14/2015 Other Family Member - Has No Family History of Stomach Cancer - Entered On: 08/14/2015 Other Family Member - Has No Family History of Pancreatic Cancer - Entered On: 08/14/2015 Other Family Member - Has No Family History of Ovarvian Cancer - Entered On: 08/14/2015 Other Family Member - Has No Family History of Kidney/Urinary Tract Cancer - Entered On: 08/14/2015 Other Family Member - Has No Family History of DVT/PE on OCP - Entered On: 08/14/2015 Other Family Member - Has No Family History of Colon Cancer - Entered On: 08/14/2015 Other Family Member - Has No Family History of Brain Cancer - Entered On: 08/14/2015 Other Family Member - Has No Family History of Breast Cancer - Entered On: 2015 Other Family Member - Has No Family History of Biliary Tract Cancer - Entered On: 08/14/2015 General Comments - FH: No Family History of Breast Cancer No Family History of Colon Cancer No Family History of Ovarvian Cancer No Family History of DVT/PE on OCP Social History: Patient is single Smoking History: Patient has never smoked. 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 Hospitalizations: negative Anesthesia Complications: negative Abnormal PAP: positive, + HPV - not 16 or 18 Uterine Anomaly: negative GENIE Exposure: negative Infertility: negative Infection History HIV Risk Eval: no TB exposure: no Personal hx. of genital herpes: no Partner hx. of genital herpes: no Hx of STD: none Review of Systems General Denies fever, chills, sweats, anorexia, fatigue, weakness, malaise, weight loss and sleep disorder. Denies vaginal discharge, incontinence, dysuria, hematuria, urinary frequen cy, amenorrhea, menorrhagia, abnormal vaginal bleeding, pelvic pain, genital sores, decreased libido, painful periods, painful sex, urinary urgency, hot flashes, vaginal dryness, vaginal itching and vaginal odor. CV Denies chest pains, palpitations, syncope, dyspnea on exertion, orthopnea, PND and peripheral edema. Resp Denies cough, dyspnea at rest, excessive sputum, hemoptysis, wheezing and pleurisy. GI Denies nausea, vomiting, diarrhea, constipation, change in bowel habits, abdominal pain, melena, hematochezia, jaundice, gas/bloating, indigestion/heartburn, dysphagia and odynophagia. Breast Denies left breast lump, right breast lump, nipple discharge, bloody discha rge from nipple, breast pain, abnormal mammogram and breast enlargement. Psych Denies depression, anxiety, irritability and mood swings. Past History Past Medical History: No medical history, other (See HPI) Past Surgical History: Other (See HPI) Social history: full code, other (See HPI) Family history: other (See HPI) Medications and Allergies Allergies Allergy/AdvReac Type Severity Reaction Status Date / Time No Known Allergies Allergy Verified 03/10/21 16:28 Home Medications Medication Instructions Recorded Confirmed Last Taken Type No Known Home Medications [No 03/10/21 03/10/21 Unknown History Reported Home Medications] Review of Systems Constitutional: other (See HPI) Exam - Physical Exam Narrative exam: HEENT: normocephalic, no lesions or deformities Skin no abnormal lesions or rashes Chest: respiratory effort normal, clear to auscultation CV: regular, normal S1-S2, no murmur, no rub, no gallop Abdomen: soft, non-tender, no masses, bowel sounds normal Neuro: no gross anomalities Extremities: no clubbing, cyanosis, or edema [employer]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 Cervix: normal appearance, no lesions. Uterus: normal position, midline, mobile Adnexae: no masses or tenderness Rectovaginal: deferred - Constitutional Vitals: Temp Pulse Resp BP Pulse Ox 98.2 F 66 20 112/75 100 03/11/21 13:25 03/11/21 13:25 03/11/21 13:25 03/11/21 13:25 03/11/21 13:25 Results - Labs CBC & Chem 7: 12/15/21 13:30 Assessment and Plan - Patient Problems (1) Sterilization Status: Acute Plan to address problem: Patient desires sterilization.Discuss the permanency of sterilization. High risk of regret and 0.5 to 1% risk of failure. Discussed options of tubal blockage and salpingectomy and it's possible benefit of preventing ovarian cancer and increased risks of bleeding during the procedure. Discuss the risks of the surgery including infection, bleeding possibly heavy enough to require a blood transfusion, possilble damage to bowel, bladder or ureter. Patient understands and desires to proceed with salpingectomy
[2021-03-16] MEDS ORDERED: MAGNESIUM OXIDE 400 MG TAB PO NR (10:05)
[2021-03-16] MEDS ORDERED: ACETAMINOPHEN 500 MG TAB PO NR (10:05)
[2021-03-16] MEDS ORDERED: ONDANSETRON 4 MG/2 ML INJ IV PRN (10:06)
[2021-03-16] MEDS ORDERED: HYDROmorphone 1 MG/1 ML INJ IV PRN ×2 (10:06)
--- NOTE | 2021-03-16 10:07 | Anesthesia Day of Surgery ---
Anesthesia Day of Surgery - Day of Surgery Patient Examined: Yes Patient H&P Reviewed: Yes Patient is NPO: Yes
--- NOTE | 2021-03-16 10:08 | Anesthesia Consultation ---
Anesthesia Consult and Med Hx Date of service: 03/16/21 - Airway Anesthetic Teeth Evaluation: Chipped, Crowns ROM Head & Neck: Adequate Mental/Hyoid Distance: Adequate Mallampati Class: Class I Intubation Access Assessment: Good - Pre-Operative Health Status ASA Pre-Surgery Classification: ASA1 Proposed Anesthetic Plan: General - Pulmonary Hx Smoking: No Hx Asthma: No COPD: No Hx Pneumonia: No - Cardiovascular System Hx Hypertension: No - Central Nervous System Hx Seizures: No Hx Psychiatric Problems: No - Endocrine Hx Renal Disease: No Hx End Stage Renal Disease: No Hx Hypothyroidism: No Hx Hyperthyroidism: No - Hematic Hx Anemia: No Hx Sickle Cell Disease: No - Other Systems Hx Alcohol Use: Yes (Occas) Hx Cancer: No Hx Obesity: Yes
[2021-03-16] MEDS ORDERED: LACTATED RINGERS 1,000 ML IV SCH (10:30)
[2021-03-16] MEDS ORDERED: CELECOXIB 200 MG CAP PO NR (11:00)
[2021-03-16] MEDS ORDERED: BUPIVACAINE/PF (0.5%) 5 MG/1 ML 30 ML VIAL INFILTRATI ONE ×2 (11:38→12:22)
[2021-03-16] MEDS ORDERED: fentaNYL 100 MCG/2 ML INJ ONE ×2 (11:40→12:40)
[2021-03-16] MEDS ORDERED: propofoL 200 MG/20 ML VIAL IV ONE (11:40)
[2021-03-16] MEDS ORDERED: LIDOCAINE MPF (2%) 20 MG/1 ML VIAL 5 ML ONE (11:40)
[2021-03-16] MEDS ORDERED: ONDANSETRON 4 MG/2 ML INJ ONE (12:01)
[2021-03-16] MEDS ORDERED: dexAMETHasone 20 MG/5 ML VIAL ONE (12:01)
[2021-03-16] MEDS ORDERED: SODIUM CHLORIDE 0.9% IRR 1,500 ML BOTTLE IR ONE (12:22)
[2021-03-16] MEDS ORDERED: LACTATED RINGERS 1,000 ML ONE (12:37)
[2021-03-16] MEDS ORDERED: NEOSTIGMINE 10MG/10 ML INJ MDV ONE (12:37)
[2021-03-16] MEDS ORDERED: GLYCOPYRROLATE 0.4 MG/2 ML INJ ONE (12:37)
[2021-03-16] MEDS ORDERED: KETOROLAC 30 MG/1 ML INJ ONE (12:37)
--- NOTE | 2021-03-16 12:50 | Operative Report ---
Operative Report Operative Report: Date of procedure: March 16, 2021 Pre-operative diagnosis: Patient desires permanent sterilization Post-operative diagnosis: Same Procedure name(s): Laparoscopic bilateral salpingectomy Surgeon: Bhargav Lindquist MD Fiction And Nonfiction Prose Writer: CLIF Anesthesia: General endotracheal EBL: Minimal Complications: None Findings: Patient with uterus approximately 8-10 weeks in size with normal fallopian tubes bilaterally Specimen(s): Bilateral fallopian tubes Patient was brought in the operating room. General anesthesia was induced without difficulty. She was placed in dorsal lithotomy position. Prepped and draped in usual sterile manner. Her urinary bladder with was emptied with a red rubber catheter. Speculum placed in her vagina and Sargis uterine manipulator was placed for uterine manipulation without difficulty. Attention was then switched to the patient's abdomen. An infra-umbilical incision was made with a scalpel. This incision was spread with a hemostat. A 5 mm trocar was placed in this incision while lifting high the abdominal wall. Intra-abdominal presence was verified directly with the laparoscope. The patient was then insufflated to approximately 3 L of CO2 gas. The patient's findings as noted above. An accessory puncture was made suprapubically. The 8 mm trocar was placed through this incision under direct visualization with no evidence of internal organ damage. Each of the fallopian tube were identified by its fimbriated end. Starting with the right fallopian tube approximately 1 to 2 cm from the cornea LigaSure device was used to cross sectional cut the tube. From this point the ligature device was used to cauterize and cut the mesosalpinx until the fimbriated end was reached detaching the tube. The fallopian tube was then removed through the accessory port attention was then switched to the contralateral tube. Same procedure was performed detaching that tube and removed it through the accessory port. The remaining stump was inspected and found to be hemostatic. At this time all instruments were removed. The patient was de-insufflated. The skin incisions were closed subcuticularly with 4-0 Vicryl. Marcaine was injected into the surgical incisions, for postoperative pain relief. The patient tolerated procedure well. She was awakened in the operating room and accompanied to the recovery room in good condition.
--- NOTE | 2021-03-16 13:05 | Short Stay Summary ---
Short Stay Documentation Date of service: 03/16/21 - History Principal diagnosis: Desires permanent sterilization Past Medical History: No medical history, other (See HPI) Past Surgical History: Other (See HPI) Social history: full code, other (See HPI) - Allergies and Medications Current Medications: Allergies No Known Allergies Allergy (Verified 03/10/21 16:28) Home Medications Medication Instructions Recorded Confirmed Last Taken Type Ibuprofen [Motrin] 800 mg PO TID PRN #30 tablet 03/16/21 Unknown Rx oxyCODONE /ACETAMINOPHEN [Percocet 1 tab PO Q6HR PRN #10 tablet 03/16/21 Unknown Rx 5/325 mg] Active Medications Hydrocodone Bitart/Acetaminophen (Hydrocodone/Acetaminophen 5-325 Mg Tab) 2 each PO Q6H PRN PRN Reason: Pain, Moderate (4-6) Hydromorphone HCl (Hydromorphone 1 Mg/1 Ml Inj) 0.25 mg IV Q10MIN PRN PRN Reason: Pain, Moderate (4-6) Stop: 03/16/21 23:00 Hydromorphone HCl (Hydromorphone 1 Mg/1 Ml Inj) 0.5 mg IV Q10MIN PRN PRN Reason: Pain , Severe (7-10) Stop: 03/16/21 23:00 Lactated Ringer's (Lactated Ringers) 1,000 mls @ 100 mls/hr IV DIRECT DANY Last Admin: 03/16/21 10:20 Dose: 100 mls/hr Documented by: - Physical exam General appearance: no acute distress Integumentary: no rash HEENT: Atraumatic Lungs: Normal air movement Breasts: deferred Heart: Regular rate Gastrointestinal: normal Female Genitourinary: normal Rectal Exam: deferred Extremities: no ischemia, pulses intact - Brief post op/procedure progress note Date of procedure: 03/16/21 (See operative note for details) Condition: stable - Hospital course Hospital course: Patient was admitted underwent the above him procedure without any complications. Patient will be discharged with follow-up in office in 1-2 weeks for postop check. - Disposition Condition at discharge: Good Disposition: 01 HOME / SELF CARE / HOMELESS - Discharge Diagnoses (1) Sterilization Status: Acute Short Stay Discharge Plan Activity: advance as tolerated Diet: regular Wound: open to air Additional Instructions: Patient to call office for any fever, chills, nausea, vomiting or pain not controlled by pain medication. Follow up with: [facility],FAMILY MEDICINE [Other] - 7 Days Prescriptions: Ibuprofen [Motrin] 800 mg PO TID PRN #30 tablet PRN Reason: Pain oxyCODONE /ACETAMINOPHEN [Percocet 5/325 mg] 1 tab PO Q6HR PRN #10 tablet PRN Reason: Pain
[2021-03-16] MEDS ORDERED: HYDROcodone/ACETAMINOPHEN 5-325 MG TAB PO PRN (14:00)
[2021-03-16 14:38] VITALS: BP 117/78
== END 2021-03-16 14:20 | disposition home or self-care (01) ==
LOC: OR 09:48
PROVIDERS: ATTEND Obstetrics & Gynecology
DX: Z30.2 Encounter for sterilization (principal); E66.9 Obesity, unspecified; Z79.899 Other long term (current) drug therapy; Z98.890 Other specified postprocedural states; Z20.822 Contact with and (suspected) exposure to COVID-19
CPT/HCPCS: 36415; 58661; 84703; 85027; 88302; J1100; J1815; J1885; J2405; J2704; J2710; J3010; J3490; J7120; U0003